=== PATIENT | male | born 1940 | race Caucasian/White ===

== ENCOUNTER → 2016-05-27 | Outpatient (CLI) | payer OTHER ==
[~2016-05-27] MED LIST: ATEN-60; COLC0.6T; FURO20TA3; GLYB5TAB8; METF-312; PIOG15TA38; POTA12PO2; VALS40TA2
[2016-05-27 10:02] LABS: Mean Corpuscular Hemoglobin 29.6 pg (28.0-32.0)
[2016-05-27 10:10] LABS: Urine Bilirubin Negative (Negative); Urine Blood TRACE /uL (Negative); Urine Color Yellow (Yellow); Urine Glucose Normal (Normal); Urine Ketone Negative (Negative); Urine Nitrite Negative (Negative); Urine RBC 2 /hpf (0 - 3); Urine Squamous Epithelial Cell FEW /hpf (<5); Urine Urobilinogen Normal (Negative)
[2016-05-27 10:15] LABS: Basophils # (auto) 0 uL; Basophils % (auto) 0.3 % (0.0-2.0); Eosinophils # (auto) 0.2 uL; Eosinophils % (auto) 2.3 % (0.0-7.0); Hematocrit 43.9 % (41.0-53.0); Hemoglobin 14.4 g/dL (13.5-17.5); Lymphocytes # (auto) 2.5 uL; Lymphocytes % (auto) 26.2 % (10.0-50.0); Mean Corpuscular Hgb Conc. 32.8 g/dL (32.0-36.0); Mean Corpuscular Volume 90.3 fL (80.0-100.0); Mean Platelet Volume 9.2 fL (7.4-10.4); Monocytes # (auto) 0.8 uL; Neutrophils # (auto) 6.1 uL; Neutrophils % (auto) 63.2 % (37.0-80.0); Platelet Count (auto) 280 10^3/uL (140-450); Red Cell Distribution Width 14.1 % (11.6-16.0); White Blood Cell 9.6 10^3/uL (4.4-10.8)
[2016-05-27 10:27] LABS: Albumin 3.5 g/dL (3.4-5.0); BUN/Creatinine Ratio 23.7; Bilirubin, Total 0.4 mg/dL (0.2-1.0); Calcium 8.8 mg/dL (8.5-10.1); Potassium 4.4 mmol/L (3.5-5.1); Total Protein 7.5 g/dL (6.4-8.2)
== END | disposition home or self-care (01) ==
LOC: LAB 09:12
DX: E11.9 Type 2 diabetes mellitus without complications (principal)
CPT/HCPCS: 36415; 80053; 80061; 81001; 82043; 83036; 84443; 85025

== ENCOUNTER → 2016-12-03 | Outpatient (CLI) | payer OTHER ==
[~2016-12-03] MED LIST changes: -METF-312; +METF-370
[2016-12-03 12:49] LABS: Albumin 3.2 g/dL (3.4-5.0); Calcium 9.2 mg/dL (8.5-10.1); Potassium 4.2 mmol/L (3.5-5.1)
[2016-12-03 12:52] LABS: Bilirubin, Total 0.4 mg/dL (0.2-1.0); Total Protein 7.7 g/dL (6.4-8.2)
[2016-12-03 13:04] LABS: Basophils # (auto) 0 uL; Basophils % (auto) 0.2 % (0.0-2.0); CONDITION Y; Eosinophils # (auto) 0.1 uL; Eosinophils % (auto) 0.9 % (0.0-7.0); Hematocrit 40.4 % (41.0-53.0); Hemoglobin 13.3 g/dL (13.5-17.5); Lymphocytes # (auto) 2.1 uL; Lymphocytes % (auto) 19.2 % (10.0-50.0); Mean Corpuscular Hemoglobin 28.7 pg (28.0-32.0); Mean Corpuscular Hgb Conc. 32.8 g/dL (32.0-36.0); Mean Corpuscular Volume 87.4 fL (80.0-100.0); Mean Platelet Volume 8.6 fL (7.4-10.4); Monocytes # (auto) 0.7 uL; Monocytes % (auto) 6.5 % (0.0-12.0); Neutrophils % (auto) 73.2 % (37.0-80.0); Platelet Count (auto) 486 10^3/uL (140-450); Red Cell Distribution Width 14.8 % (11.6-16.0); White Blood Cell 10.9 10^3/uL (4.4-10.8)
== END | disposition home or self-care (01) ==
LOC: LAB 11:52
PROVIDERS: ATTEND Internal Medicine
DX: K21.9 Gastro-esophageal reflux disease without esophagitis (principal); I11.9 Hypertensive heart disease without heart failure; R63.4 Abnormal weight loss
CPT/HCPCS: 36415; 80053; 82607; 83036; 84153; 85025; 86301

== ENCOUNTER → 2016-12-11 | Outpatient (CLI) | payer OTHER ==
[2016-12-11 12:19] LABS: Basophils # (auto) 0 uL; Basophils % (auto) 0.5 % (0.0-2.0); Eosinophils # (auto) 0 uL; Hematocrit 39.3 % (41.0-53.0); Hemoglobin 13.1 g/dL (13.5-17.5); Lymphocytes # (auto) 1.1 uL; Lymphocytes % (auto) 22.2 % (10.0-50.0); Mean Corpuscular Hemoglobin 28.3 pg (28.0-32.0); Mean Corpuscular Hgb Conc. 33.2 g/dL (32.0-36.0); Mean Corpuscular Volume 85.4 fL (80.0-100.0); Monocytes # (auto) 0.5 uL; Neutrophils # (auto) 3.3 uL; Neutrophils % (auto) 66.3 % (37.0-80.0); Platelet Count (auto) 208 10^3/uL (140-450); Red Cell Distribution Width 14.6 % (11.8-14.3)
[2016-12-11 12:31] LABS: Albumin 2.9 g/dL (3.4-5.0); BUN/Creatinine Ratio 14.1; Bilirubin, Total 0.3 mg/dL (0.2-1.0); Calcium 8.5 mg/dL (8.5-10.1); Total Protein 7.3 g/dL (6.4-8.2)
== END | disposition home or self-care (01) ==
LOC: LAB 11:31
PROVIDERS: ATTEND Internal Medicine
DX: E11.9 Type 2 diabetes mellitus without complications (principal); R50.9 Fever, unspecified
CPT/HCPCS: 36415; 80053; 83615; 85025; 87040; 87086

== ENCOUNTER 2017-02-13 09:33 | Day surgery (SDC) | payer OTHER ==
[2017-02-10 10:19] LABS: Basophils # (auto) 0 uL; Basophils % (auto) 0.5 % (0.0-2.0); Eosinophils # (auto) 0.2 uL; Eosinophils % (auto) 1.9 % (0.0-7.0); Hematocrit 40.4 % (41.0-53.0); Hemoglobin 13.3 g/dL (13.5-17.5); Lymphocytes # (auto) 2.2 uL; Lymphocytes % (auto) 24.7 % (10.0-50.0); Mean Corpuscular Hemoglobin 28.3 pg (28.0-32.0); Mean Corpuscular Hgb Conc. 32.9 g/dL (32.0-36.0); Mean Corpuscular Volume 85.9 fL (80.0-100.0); Mean Platelet Volume 8.2 fL (6.9-10.8); Monocytes # (auto) 0.7 uL; Neutrophils # (auto) 5.8 uL; Neutrophils % (auto) 64.9 % (37.0-80.0); Nucleated Red Blood Cells % 0.1 %; Platelet Count (auto) 307 10^3/uL (140-450); Red Cell Distribution Width 17.2 % (11.8-14.3)
[2017-02-10 10:27] LABS: INR 1.03 (0.9-1.15); Prothrombin Time 11.2 sec (9.37-12.3)
[~2017-02-13] VITALS: Ht 185.4 cm; Wt 108.9 kg
[~2017-02-13 09:33] MED LIST changes: -ATEN-60; -COLC0.6T; +FURO20TA PO; -FURO20TA3; +GLIM4TAB42 PO; -GLYB5TAB8; -METF-370; -PIOG15TA38; +POTA10TA34 PO; -POTA12PO2; +VALS1TAB54 PO; -VALS40TA2
[2017-02-13] MEDS ORDERED: LIDOCAINE VISCOUS 2% 15ML UD ONE (09:52)
[2017-02-13] MEDS ORDERED: diphenhdrAMINE HCL 50 MG/1 ML VL ONE (09:53)
[2017-02-13] MEDS ORDERED: SODIUM CHLORIDE LOCK 10 ML ONE (09:53)
[2017-02-13] MEDS: fentaNYL CITRATE 100 MCG/2 ML VL ONE ×2 (10:59→11:02)
[2017-02-13] MEDS: MIDAZOLAM HCL 5 MG/ML-1ML VIAL ONE ×2 (10:59→11:02)
[2017-02-13 11:50] VITALS: BP 121/67
== END 2017-02-13 11:59 | disposition home or self-care (01) ==
LOC: GI 09:33
PROVIDERS: ATTEND Internal Medicine Gastroenterology
DX: K29.50 Unspecified chronic gastritis without bleeding (principal); E74.4 Disorders of pyruvate metabolism and gluconeogenesis; Z88.5 Allergy status to narcotic agent; E11.9 Type 2 diabetes mellitus without complications; Z90.49 Acquired absence of other specified parts of digestive tract
CPT/HCPCS: 36415; 43239; 43248; 82962; 85025; 85610; J2250; J3010

== ENCOUNTER → 2017-02-23 | Outpatient (CLI) | payer OTHER | END | disposition home or self-care (01) | LOC: LAB 15:12 | PROVIDERS: ATTEND Internal Medicine | DX: I89.0 Lymphedema, not elsewhere classified (principal) | CPT/HCPCS: 36415; 82565; 84520 ==

== ENCOUNTER → 2017-06-01 | Outpatient (CLI) | payer OTHER ==
[~2017-06-01] MED LIST changes: -VALS1TAB54 PO; +VALS1TAB58 PO
[2017-06-01 09:20] LABS: Cholesterol 147 mg/dL (< 200); HDL Cholesterol 47 mg/dL (40-59); LDL Cholesterol 96 mg/dL (< 100); Triglycerides 51 mg/dL (< 150)
== END | disposition home or self-care (01) ==
LOC: LAB 08:15
PROVIDERS: ATTEND Internal Medicine
DX: E11.9 Type 2 diabetes mellitus without complications (principal); E78.00 Pure hypercholesterolemia, unspecified
CPT/HCPCS: 36415; 80061; 83036

== ENCOUNTER 2017-07-27 08:27 | Day surgery (SDC) | payer OTHER ==
[2017-07-23 11:11] LABS: INR 0.97 (0.9-1.15); Prothrombin Time 10.6 sec (9.37-12.3)
[2017-07-23 11:12] LABS: Basophils # (auto) 0 uL; Basophils % (auto) 0.4 % (0.0-2.0); Eosinophils # (auto) 0.2 uL; Eosinophils % (auto) 2.5 % (0.0-7.0); Hematocrit 42.2 % (41.0-53.0); Hemoglobin 13.7 g/dL (13.5-17.5); Lymphocytes # (auto) 2.4 uL; Lymphocytes % (auto) 26.6 % (10.0-50.0); Mean Corpuscular Hemoglobin 29.1 pg (28.0-32.0); Mean Corpuscular Hgb Conc. 32.5 g/dL (32.0-36.0); Mean Corpuscular Volume 89.6 fL (80.0-100.0); Monocytes # (auto) 0.7 uL; Monocytes % (auto) 7.5 % (0.0-12.0); Neutrophils # (auto) 5.6 uL; Nucleated Red Blood Cells % 0.1 %; Platelet Count (auto) 278 10^3/uL (140-450); Red Blood Cells 4.71 10^6/uL (4.5-5.90); Red Cell Distribution Width 14.8 % (11.8-14.3); White Blood Cell 8.9 10^3/uL (4.4-10.8)
[~2017-07-27] VITALS: Ht 185.4 cm; Wt 109.8 kg
[~2017-07-27 08:27] MED LIST changes: +ASPI325T4 PO; +LIDOCAINE VISCOUS 2% 15ML UD ONE; +diphenhdrAMINE HCL 50 MG/1 ML VL ONE
[2017-07-27] MEDS: MIDAZOLAM HCL 5 MG/ML-1ML VIAL ONE ×2 (09:56→10:01)
[2017-07-27] MEDS: fentaNYL CITRATE 100 MCG/2 ML VL ONE ×2 (09:56→10:01)
[2017-07-27 10:53] VITALS: BP 159/75
== END 2017-07-27 11:06 | disposition home or self-care (01) ==
LOC: GI 08:27
PROVIDERS: ATTEND Internal Medicine Gastroenterology
DX: K57.30 Diverticulosis of large intestine without perforation or abscess without bleeding (principal); K64.8 Other hemorrhoids; E66.9 Obesity, unspecified; E11.9 Type 2 diabetes mellitus without complications; Z88.5 Allergy status to narcotic agent; Z68.31 Body mass index [BMI] 31.0-31.9, adult; Z90.49 Acquired absence of other specified parts of digestive tract; Z79.82 Long term (current) use of aspirin; Z79.891 Long term (current) use of opiate analgesic
CPT/HCPCS: 36415; 45378; 82962; 85025; 85610; 85730; J1200; J2250; J3010; J7030; 99152